=== PATIENT | male | born 1995 | race Caucasian/White ===

== ENCOUNTER 2016-11-21 09:46 | Inpatient (IN) | payer OTHER ==
[~2016-11-21] VITALS: Ht 172.7 cm; Wt 109.0 kg
[~2016-11-21 09:46] MED LIST: ARIP1TAB12 PO; ARIP400P IM; CARB200 PO; PROP1TAB66 PO; ZYPR15TA12 PO
[2016-11-21 09:59] VITALS: BP 98/56; PULSE 88; RESP 18; TEMP 98.6
[2016-11-21] MEDS ORDERED: OLANZapine ODT 10 MG TAB PO ONE (10:00)
[2016-11-21 10:25] LABS: BASOPHIL # 0.1 TH/MM3 (0-0.2); BASOPHIL % 0.9 % (0.0-2.0); EOSINOPHIL # 0.1 TH/MM3 (0-0.4); EOSINOPHIL % 1.2 % (0.0-4.0); HEMATOCRIT 45.4 % (39.0-51.0); HEMO FLAGS DIFF FINAL; LYMPH % 31.5 % (9.0-44.0); LYMPHOCYTE # 3.2 TH/MM3 (1.0-4.8); MEAN CELL VOLUME 83.7 FL (80.0-100.0); MEAN CORPUSCULAR HEMOGLOBIN 28.5 PG (27.0-34.0); MONO % 7.1 % (0.0-8.0); NEUT % 59.3 % (16.0-70.0); PLATELET COUNT 244 TH/MM3 (150-450); RED BLOOD COUNT 5.42 MIL/MM3 (4.50-5.90); RED CELL DISTRIBUTION WIDTH 13.5 % (11.6-17.2); WHITE BLOOD COUNT 10.2 TH/MM3 (4.0-11.0)
[2016-11-21 10:46] LABS: ALT (GPT) 34 U/L (9-52); ANION GAP 5 MEQ/L (5-15); AST (GOT) 24 U/L (15-39); BICARBONATE 28.6 MEQ/L (21.0-32.0); BLOOD UREA NITROGEN 8 MG/DL (7-18); CHLORIDE 105 MEQ/L (98-107); GLOMERULAR FILTRATION RATE 109 ML/MIN (>89); POTASSIUM 3.6 MEQ/L (3.5-5.1); SODIUM (NA) 139 MEQ/L (136-145)
[2016-11-21 10:48] LABS: ALKALINE PHOSPHATASE 69 U/L (45-117); TOTAL BILIRUBIN ADULT 0.9 MG/DL (0.2-1.0)
[2016-11-21] MEDS ORDERED: LORazepam 2 MG/ML VIAL ONE (11:51)
[2016-11-21] MEDS ORDERED: diphenhydrAMINE HCL 50 MG/ML VIAL ONE (11:51)
--- NOTE | 2016-11-21 11:58 | PD ---
HPI Chief Complaint: Psychiatric Symptoms Time Seen by Provider: 09:54 Travel History International Travel<30 days: No Contact w/Intl Traveler<30days: No Traveled to known affect area: No History of Present Illness HPI This is a 21-year-old male who presents to the emergency department with a history of bipolar disorder and schizoaffective disorder who presents to the emergency department having been brought in under a Cooper act for bizarre behavior. Patient is not able to provide a linear history. He expressed to police that he was having thoughts of hurting himself. He reports he's been off of his psychiatric medications for one year. PFS Past Medical History ADHD: No Bipolar Disorder: Yes (Bipolar D/O Type 1) Anxiety: No Depression: Yes Cancer: No Cardiovascular Problems: No Developmental Delay: No Diabetes: No Diminished Hearing: No Endocrine: No Gastrointestinal Disorders: No Genitourinary: No Headaches: No Hypertension: Yes Immune Disorder: No Implanted Vascular Access Dvce: No Musculoskeletal: No Neurologic: No Psychiatric: Yes Reproductive: No Respiratory: No Immunizations Current: Yes Migraines: No Seizures: No Thyroid Disease: No Ulcer: No Social History Alcohol Use: Yes (weekends) Tobacco Use: Yes (ppd) Substance Use: Yes (MARIJUANA) Allergies-Medications (Allergen,Severity, Reaction): Coded Allergies: No Known Allergies (Verified , 06/04/15) Per mother. Reported Meds & Prescriptions Reported Meds & Active Scripts Active No Active Prescriptions or Reported Medications Review of Systems Except as stated in HPI: all other systems reviewed are Neg Physical Exam Narrative GENERAL:Well appearing, no acute distress SKIN: Focused skin assessment warm and dry. HEAD: Atraumatic. Normocephalic. EYES: Pupils equal and round. No injection or drainage. ENT: Moist mucous membranes NECK: Trachea midline. CARDIOVASCULAR: Regular rate and rhythm. No murmur appreciated. RESPIRATORY: Clear to auscultation. Breath sounds equal bilaterally. GASTROINTESTINAL: Abdomen soft, non-tender, nondistended. MUSCULOSKELETAL: No obvious deformities. NEUROLOGICAL: Awake and alert. No obvious cranial nerve deficits. Moving all extremities. PSYCHIATRIC: Pacing around the room, inappropriate answers to questions, appears to be responding to internal stimuli Data Data Last Documented VS Vital Signs Date Time Temp Pulse Resp B/P Pulse Ox O2 Delivery O2 Flow Rate FiO2 11/21/16 10:12 88 18 11/21/16 09:59 98.6 98/56 Orders Complete Blood Count With Diff (11/21/16 09:57) Comprehensive Metabolic Panel (11/21/16 09:57) Drug Screen, Random Urine (11/21/16 09:57) Alcohol (Ethanol) (11/21/16 09:57) Olanzapine Odt (Zyprexa Zydis Odt) (11/21/16 10:00) Psych Screen (11/21/16 09:59) Lorazepam Inj (Ativan Inj) (11/21/16 11:51) Diphenhydramine Inj (Benadryl Inj) (11/21/16 11:51) Labs Laboratory Tests Test 11/21/16 10:06 White Blood Count 10.2 TH/MM3 Red Blood Count 5.42 MIL/MM3 Hemoglobin 15.4 GM/DL Hematocrit 45.4 % Mean Corpuscular Volume 83.7 FL Mean Corpuscular Hemoglobin 28.5 PG Mean Corpuscular Hemoglobin 34.0 % Concent Red Cell Distribution Width 13.5 % Platelet Count 244 TH/MM3 Mean Platelet Volume 9.8 FL Neutrophils (%) (Auto) 59.3 % Lymphocytes (%) (Auto) 31.5 % Monocytes (%) (Auto) 7.1 % Eosinophils (%) (Auto) 1.2 % Basophils (%) (Auto) 0.9 % Neutrophils # (Auto) 6.0 TH/MM3 Lymphocytes # (Auto) 3.2 TH/MM3 Monocytes # (Auto) 0.7 TH/MM3 Eosinophils # (Auto) 0.1 TH/MM3 Basophils # (Auto) 0.1 TH/MM3 CBC Comment DIFF FINAL Differential Comment Sodium Level 139 MEQ/L Potassium Level 3.6 MEQ/L Chloride Level 105 MEQ/L Carbon Dioxide Level 28.6 MEQ/L Anion Gap 5 MEQ/L Blood Urea Nitrogen 8 MG/DL Creatinine 0.89 MG/DL Estimat Glomerular Filtration 109 ML/MIN Rate Random Glucose 89 MG/DL Calcium Level 9.0 MG/DL Total Bilirubin 0.9 MG/DL Aspartate Amino Transf 24 U/L (AST/SGOT) Alanine Aminotransferase 34 U/L (ALT/SGPT) Alkaline Phosphatase 69 U/L Total Protein 7.5 GM/DL Albumin 3.9 GM/DL Ethyl Alcohol Level LESS THAN 3 MG/DL MDM Medical Decision Making Medical Screen Exam Complete: Yes Emergency Medical Condition: Yes Interpretation(s) Afebrile, no tachycardia, normotensive No leukocytosis Electrolytes are reassuring Alcohol level was 3 Differential Diagnosis Psychosis, bipolar disorder, schizoaffective disorder, schizophrenia Narrative Course This is a 21-year-old male who presents to the emergency department with acute psychosis. He is pacing around the room and not responding appropriately to questioning. I do think he likely will require involuntary admission. Labs were obtained which were reassuring. Patient was medically cleared for psychiatric evaluation. Diagnosis Primary Impression: Psychosis Qualified Code: F29 - Psychosis, unspecified psychosis type Scripts No Active Prescriptions or Reported Meds Mee Macias MD Nov 21, 2016 11:58
[2016-11-21] MEDS ORDERED: diphenhydrAMINE HCL 50 MG/ML VIAL IM ONE (12:00)
[2016-11-21] MEDS ORDERED: LORazepam 2 MG/ML VIAL IM ONE (12:00)
[2016-11-21 16:02] VITALS: BP 134/70; PULSE 65; RESP 18; TEMP 98.1; O2SAT 100
--- NOTE | 2016-11-21 16:58 | PD ---
History of Present Illness Chief Complaint: Psychiatric Symptoms Time Seen by Provider: 11:30 Travel History International Travel<30 Days: No Contact w/Intl Traveler<30days: No Known affected area: No Legal Status Legal Status: Cooper Act Cooper Act Signed By: Edward Paige History of Present Illness: History of Present Illness HPI This is a 21-year-old male with history of schizoaffective disorder bipolar type who presents to the emergency department under a BA. The BA alleges that has not taken medication in over one year, that he has made statements that he was going to kill people. He stated to the police that he will harm people. The patient presents to [facility] in an agitated and threatening manner. He received Zyprexa while in main ED. Patient was moved to [facility] due to concerns over his level of agitation. Upon arrival to [facility] he remains agitated. He has been pacing in hallways, punching the vázquez in his room, going up to the door of other rooms which are occupied and making verbal threats towards other patients. He has required restraints due to his potential to harm self and others. He is uncooperative with evaluation. Toxicology results are pending at this time. EMR is reviewed. his last psychiatric admission at [facility] [place]. I have called his mother Kate at [phone]. She reports that for the past week he has been aggressive and threatening, has not been sleeping as well as responding to internal stimuli. She overheard him saying " I'm going to kill those people". This morning he was punching the vázquez in the house. His siblings who are 15 years and 13 years are afraid of him. She has called the police several times in the past few days. PFSH Past Medical History ADHD: No Bipolar Disorder: Yes (Bipolar D/O Type 1) Anxiety: No Depression: Yes Cancer: No Cardiovascular Problems: No Developmental Delay: No Diabetes: No Diminished Hearing: No Endocrine: No Gastrointestinal Disorders: No Genitourinary: No Headaches: No Hypertension: Yes Immune Disorder: No Implanted Vascular Access Dvce: No Musculoskeletal: No Neurologic: No Psychiatric: Yes Reproductive: No Respiratory: No Immunizations Current: Yes Migraines: No Seizures: No Thyroid Disease: No Ulcer: No Psychiatric History Psychiatric History Hx Psychiatric Treatment: Patient has a long history of psychiatric treatment starting with [facility]. Patient has had multiple hospitalization with [facility] and [facility]. History of Inpatient Treatment: Yes Guns or firearms in home: No Social History Single male. Lives with his mother, father and 2 young siblings. Unemployed. Hx Alcohol Use: Yes (weekends) Hx Tobacco Use: Yes (ppd) Hx Substance Use: Yes (MARIJUANA) Substance Use Type: Alcohol, Marijuana Other Substances Used: UNKNOWN Hx of Substance Use Treatment: No Family Psychiatric History Unknown Allergies-Medications (Allergen,Severity, Reaction): Coded Allergies: No Known Allergies (Verified , 06/04/15) Per mother. Reported Meds & Prescriptions Reported Meds & Active Scripts Active No Active Prescriptions or Reported Medications Review of Systems ROS Limitations: Uncooperative Exam Alert: Yes [place]: Person Mood: Agitated Affect: Other (angry) Speech: Clear (Loud, threatning, illogical) Eye Contact: Staring Memory Intact: Comment (not tested.) Hallucinations: Auditory (Appears to be reacting to internal stimuli.) Delusions: No (unable to determine) Homicidal: Ideation (verbalizes his intent to hurth others. ) Insight/Judgement poor. Impaired. MDM Medical Decision Making Medical Record Reviewed: Yes Assessment/Plan 21 year old male with history of bipolar disorder schizoaffective disorder who presents under a BA for threatening and aggressive behavior and verbalized statements that he wants to hurt others. Patient has been agitated and aggressive here in [facility] and has required ETO as well as restraints At this time the patient requires inpatient treatment in order to maintain his safety as well as safety of others as well as to initiate psychiatric medication. Orders Complete Blood Count With Diff (11/21/16 09:57) Comprehensive Metabolic Panel (11/21/16 09:57) Drug Screen, Random Urine (11/21/16 09:57) Alcohol (Ethanol) (11/21/16 09:57) Olanzapine Odt (Zyprexa Zydis Odt) (11/21/16 10:00) Psych Screen (11/21/16 09:59) Lorazepam Inj (Ativan Inj) (11/21/16 11:51) Diphenhydramine Inj (Benadryl Inj) (11/21/16 11:51) Lorazepam Inj (Ativan Inj) (11/21/16 12:00) Diphenhydramine Inj (Benadryl Inj) (11/21/16 12:00) Restraints Violent (11/21/16 11:59) Diet Regular Basic (11/21/16 Dinner) Results Vital Signs Date Time Temp Pulse Resp B/P Pulse Ox O2 Delivery O2 Flow Rate FiO2 11/21/16 16:02 98.1 65 18 134/70 100 Room Air 11/21/16 10:12 88 18 11/21/16 09:59 98.6 88 18 98/56 Laboratory Tests Test 11/21/16 10:06 White Blood Count 10.2 Red Blood Count 5.42 Hemoglobin 15.4 Hematocrit 45.4 Mean Corpuscular Volume 83.7 Mean Corpuscular Hemoglobin 28.5 Mean Corpuscular Hemoglobin 34.0 Concent Red Cell Distribution Width 13.5 Platelet Count 244 Mean Platelet Volume 9.8 Neutrophils (%) (Auto) 59.3 Lymphocytes (%) (Auto) 31.5 Monocytes (%) (Auto) 7.1 Eosinophils (%) (Auto) 1.2 Basophils (%) (Auto) 0.9 Neutrophils # (Auto) 6.0 Lymphocytes # (Auto) 3.2 Monocytes # (Auto) 0.7 Eosinophils # (Auto) 0.1 Basophils # (Auto) 0.1 CBC Comment DIFF FINAL Differential Comment Sodium Level 139 Potassium Level 3.6 Chloride Level 105 Carbon Dioxide Level 28.6 Anion Gap 5 Blood Urea Nitrogen 8 Creatinine 0.89 Estimat Glomerular Filtration 109 Rate Random Glucose 89 Calcium Level 9.0 Total Bilirubin 0.9 Aspartate Amino Transf 24 (AST/SGOT) Alanine Aminotransferase 34 (ALT/SGPT) Alkaline Phosphatase 69 Total Protein 7.5 Albumin 3.9 Ethyl Alcohol Level LESS THAN 3 Diagnosis Primary Impression: Schizoaffective disorder, bipolar type Admitting Information Admitting Physician Requests: Admit Prescriptions No Active Prescriptions or Reported Meds Debra Fiore Nov 21, 2016 16:58
[2016-11-21] MEDS ORDERED: ALUMINUM/MAGNESIUM/SIMETH 30 ML CUP PO PRN (17:00)
[2016-11-21] MEDS ORDERED: MAGNESIUM HYDROXIDE SUSP 30 ML CUP PO PRN (17:00)
[2016-11-21 18:20] VITALS: BP 121/71; PULSE 70; RESP 19; TEMP 96.9; O2SAT 100
[2016-11-22 05:45] VITALS: BP 127/65; PULSE 64; RESP 18; TEMP 97.9; O2SAT 99
[2016-11-22 11:00] LABS: ANION GAP 8 MEQ/L (5-15); BICARBONATE 27.2 MEQ/L (21.0-32.0); BLOOD UREA NITROGEN 9 MG/DL (7-18); CHLORIDE 104 MEQ/L (98-107); GLOMERULAR FILTRATION RATE 99 ML/MIN (>89); POTASSIUM 3.9 MEQ/L (3.5-5.1); SODIUM (NA) 139 MEQ/L (136-145)
[2016-11-22] MEDS ORDERED: ZIPRASIDONE HCL 20 MG CAP PO SCH (11:00)
[2016-11-22 11:04] LABS: HDL CHOLESTEROL 38.9 MG/DL (40.0-60.0); LDL CHOLESTEROL 106 MG/DL (0-99)
[2016-11-22] MEDS: ZIPRASIDONE MESYLATE 20 MG VIAL IM PRN (11:20)
--- NOTE | 2016-11-22 11:52 | HHI.HP ---
Provisional Diagnosis Admission Date Nov 21, 2016 at 17:01 [place] I. Schizoaffective disorder, bipolar type, rule out substance-induced psychosis, marijuana and alcohol use disorder, [place] II. Unspecified personality disorder, rule out antisocial personality disorder [place] III. No significant medical history [place] IV. History of incarcerations, aggressive behavior, multiple psychiatric hospitalization noncompliant with medications [place] V. 40 Certification of Person's Competence To Provide Express and Informed Consent I have personally examined Sukhjinder George , a person being served at [facility] on, Nov 22, 2016 11:17. Express and informed consent means consent voluntarily given in writing, by a competent person, after sufficient explanation and disclosure of the subject matter involved to enable the person to make a knowing and willful decision without any element of force, fraud, deceit, duress, or other form of constraint or coercion. This person is 18 years of age or older, is not now known to be incompetent to consent to treatment with a guardian advocate, and does not have a health care surrogate or proxy currently making medical treatment decisions. I have found this person to be one of the following: [] Competent to provide express and informed consent, as defined above, for voluntary admission to this facility and is competent to provide express and informed consent for treatment. He/she has the consistent capacity to make well reasoned, willful, and knowing decisions concerning his or her medical or mental health treatment. The person fully and consistently understands the purpose of the admission for examination/placement and is fully capable of personally exercising all rights assured under [place] [] Incompetent to provide express and informed consent to voluntary admission, and this is incompetent to provide express and informed consent to treatment. The person must be transferred to involuntary status and a petition for a guardian advocate filed with the Circuit Court. (x) Refusing to provide express and informed consent to voluntary admission but is competent to provide express and informed consent for treatment. The person must be discharged or transferred to involuntary status. Form shall be completed within 24 hours of a person's arrival at the receiving facility and filed in the clinical record of each person: 1. Admitted on a voluntary basis 2. Permitted to provide express and informed consent to his/her own treatment 3. Allowed to transfer from involuntary to voluntary status 4. Prior to permitting a person to consent to his or her own treatment after having been previously found incompetent to consent to treatment. History of Present Illness Capacity: Has Capacity HPI This is a 21-year-old descent man, domicile with his mother, unemployed , single, supported by [facility], with psychiatric history of substance induced psychosis, schizoaffective disorder bipolar type, known by service, multiple psychiatric hospitalizations, last hospitalization was here at [facility] in 2016, documentation was reviewed, he was receiving outpatient care in [facility], and he was in [facility] mantena, 400 mg IM monthly, last dose was September 03, 2015, he has history of cannabis and alcohol use disorder, aggressive behavior, noncompliant on medications, incarcerations, over one year, who presents to the emergency department under Cooper act. The Cooper act reports that has not taken medication in that he has made statements that he was going to kill people. As per ER documentation He stated to the police that he will harm people. The patient presents to Ed in an agitated and threatening manner. He received Zyprexa while in main ED. Patient was moved to [facility] due to concerns over his level of agitation. Upon arrival to Ed he remains agitated. He has been pacing in hallways, punching the vázquez in his room, going up to the door of other rooms which are occupied and making verbal threats towards other patients. He has required restraints due to his potential to harm self and others. He is uncooperative with evaluation. On psychiatric evaluation today patient was found pacing in the snyder, but interview was made in his room. Patient is seem restless, agitated, talkative, needing constant redirection but cooperative and redirectable. Patient says that he was brought here because people want to hurt him, he says that whatever he goes people are watching and his back, some people wanted to stab me, he says that he has been trying to get to started in [facility] because I want to be a doctor, but people keep watching me and looking at me differently. Patient says that in the last days he feels like even the TV is talking about him. During the evaluation patient is talkative, disorganized, tangential, restless, making weird noises and faces. At some point he became verbally hostile, but was easily escalated. In the unit patient has been walking back and forth, at times getting in verbal arguments with staff and other peers. At this moment the patient denies suicidal and homicidal ideation, he denies visual and auditory hallucinations. He is oriented 3, with very poor attention span. Patient reports that he knows that he is not doing so well, I he is interested in restarting his medication and getting better. Patient reports occasional use of marijuana and alcohol, he denies the use of heroine, cocaine, PCP, amphetamines and other illicit drugs. Collateral information from his mother Kate at [phone] was obtained by me. She reports that for the past week he has been aggressive and threatening family members and neighbors, acting very disorganized and bizarre at home, kicking the doors, punching the vázquez, has not been sleeping as well as responding to internal stimuli, talking to himself. She says that she doesn t know what to do with him anymore, he has been most probably smoking weed and using alcohol every day she says. He is aggressive and disorganized behavior doesnt allow him to function in the society. He had order of [facility] importance, the [place], [place], and many other places due to the level of his aggressiveness. He has not been taking his medication and going to his outpatient appointments Review of Systems Constitutional: DENIES: Diaphoretic episodes, Fatigue, Fever, Weight gain, Weight loss, Chills, Dizziness, Change in appetite, Night Sweats Endocrine: DENIES: Heat/cold intolerance, Polydipsia, Polyuria, Polyphagia Eyes: DENIES: Blurred vision, Diplopia, Eye inflammation, Eye pain, Vision loss , Photosensitivity, Double Vision Ears, nose, mouth, throat: DENIES: Tinnitus, Hearing loss, Vertigo, Nasal discharge, Oral lesions, Throat pain, Hoarseness, Ear Pain, Running Nose, Epistaxis, Sinus Pain, Toothache, Odynophagia Respiratory: DENIES: Apneas, Cough, Snoring, Wheezing, Hemoptysis, Sputum production, Shortness of breath Cardiovascular: DENIES: Chest pain, Palpitations, Syncope, Dyspnea on Exertion , PND, Lower Extremity Edema, Orthopnea, Claudication Gastrointestinal: DENIES: Abdominal pain, Black stools, Bloody stools, Constipation, Diarrhea, Nausea, Vomiting, Difficulty Swallowing, Anorexia Genitourinary: DENIES: Sexual dysfunction, Urinary frequency, Urinary incontinence, Urgency, Hematuria, Dysuria, Nocturia, Penile Discharge, Testicular Pain, Testicular Swelling Musculoskeletal: DENIES: Joint pain, Muscle aches, Stiffness, Joint Swelling, Back pain, Neck pain Integumentary: DENIES: Abnormal pigmentation, Nail changes, Pruritus, Rash Hematologic/lymphatic: DENIES: Bruising, Lymphadenopathy Immunologic/allergic: DENIES: Eczema, Urticaria Neurologic: DENIES: Abnormal gait, Headache, Localized weakness, Paresthesias, Seizures, Speech Problems, Tremor, Poor Balance Psychiatric: COMPLAINS OF: Anxiety, Agitation, Delusions Past Psych History Violence risk - others (6 mos) Increased Substance Abuse History Drugs/Alcohol past 12 months Patient reports occasional use of marijuana and alcohol Past Family Social History Coded Allergies: No Known Allergies (Verified , 06/04/15) Per mother. Discontinued Scripts Aripiprazole (Abilify Maintena Pre-filled DCS)400 Mg [id number] Mg IM q28d #1 INJECTION Ref 0 *For intramuscular use only* Prov:Jose R Walker MD 06/21/15 Propranolol (Inderal)10 Mg Tab10 Mg PO TID #90 TAB Ref 0 Prov:Jose R Walker MD 06/21/15 Olanzapine (Zyprexa Zydis)15 Mg Tab30 Mg PO 2 po hs #60 TAB Ref 0 Prov:Jose R Walker MD 06/21/15 Carbamazepine (Tegretol 200 Mg Tab)200 Mg [id number] Mg PO 1 1/2 tab po bid #93 TAB Ref 0 Prov:Jose R Walker MD 06/21/15 Aripiprazole 10 Mg Tab10 Mg PO BID #60 TAB Ref 0 Prov:Jose R Walker MD 06/21/15 Current Medications Medications (Trade) Dose Ordered Sig/Minnie Route Start Time Stop Time Status Last Admin (Tylenol) 650 mg Q4H PRN PO 11/21/16 17:00 (Milk Of Magnesia Liq) 30 ml DAILY PRN PO 11/21/16 17:00 (Mag-Al Plus Susp Liq) 30 ml Q6H PRN PO 11/21/16 17:00 (Geodon) 20 mg BID PO 11/22/16 11:00 (Geodon Inj) 20 mg Q4H PRN IM 11/22/16 10:45 (Depakote Er) 250 mg BID PO 11/22/16 11:00 Family History Patient does not have any family psychiatric history Social History Patient was born and raised in [place], lives with his mother in [place], he is single, unemployed, supported by SSI, his highest level of education is a GED Patient's Strengths (min. 2) Family support Physical Exam On physical examination, patient is restless, psychomotor agitated, but no tremors, no stiffness, no withdrawal symptoms, no gait disturbance present Vital Signs Vital Signs Date Time Temp Pulse Resp B/P Pulse Ox O2 Delivery O2 Flow Rate FiO2 11/22/16 05:45 97.9 64 18 127/65 99 11/21/16 16:02 Room Air Lab Results Laboratory Tests Test 11/21/16 10:06 White Blood Count 10.2 Red Blood Count 5.42 Hemoglobin 15.4 Hematocrit 45.4 Mean Corpuscular Volume 83.7 Mean Corpuscular Hemoglobin 28.5 Mean Corpuscular Hemoglobin 34.0 Concent Red Cell Distribution Width 13.5 Platelet Count 244 Mean Platelet Volume 9.8 Neutrophils (%) (Auto) 59.3 Lymphocytes (%) (Auto) 31.5 Monocytes (%) (Auto) 7.1 Eosinophils (%) (Auto) 1.2 Basophils (%) (Auto) 0.9 Neutrophils # (Auto) 6.0 Lymphocytes # (Auto) 3.2 Monocytes # (Auto) 0.7 Eosinophils # (Auto) 0.1 Basophils # (Auto) 0.1 CBC Comment DIFF FINAL Differential Comment Sodium Level 139 Potassium Level 3.6 Chloride Level 105 Carbon Dioxide Level 28.6 Anion Gap 5 Blood Urea Nitrogen 8 Creatinine 0.89 Estimat Glomerular Filtration 109 Rate Random Glucose 89 Calcium Level 9.0 Total Bilirubin 0.9 Aspartate Amino Transf 24 (AST/SGOT) Alanine Aminotransferase 34 (ALT/SGPT) Alkaline Phosphatase 69 Total Protein 7.5 Albumin 3.9 Ethyl Alcohol Level LESS THAN 3 Mental Status Examination Appearance overweight man, age appearing, regular clothing, restless, agitated, but cooperative Speech: Pressured, Tangential Orientation: x3 Memory: Unremarkable Thought Process: Flight of Ideas, Loose Association, Tangential Thought Content: Bizarre thinking, Paranoid, Ideas of Reference Fund of Knowledge Adequate for his level of education Hallucination Type: None Attention and Concentration: Abnormal Attention Remarks Decreased attention span Suicidal Ideation: No Previous Suicide Attempts: Yes Homicidal Ideation: No Previous Homicide Attempts: No Judgment: Poor Affect: Irritable Affect if Inappropriate: Other (elevated) Mood: Angry, Irritable Motor Activity: Normal gait Assessment & Plan Problem List: (1) Schizoaffective disorder, bipolar type Assessment & Plan: On psychiatric evaluation patient is definitely manic, with pressured speech, restlessness, psychomotor agitation, decreased attention span , disorganized speech and behavior, flight of ideas, and also psychotic features such as paranoia and delusions of reference. Patient has been reportedly aggressive, agitated, hostile, and difficult to redirect verbally in the ER in the unit. His mother reports the patient has been having this presentation for about 2 weeks now with an increase in intensity and severity in the last 3 days. At this moment is not clear if the etiology of this presentation is related with substance intoxication or due to a primary major psychiatric illness decompensation a chest schizoaffective disorder bipolar type. Unfortunately toxicology was not done in patient arrival to the hospital. However, patient meets criteria for involuntary psychiatric admission due to his level of disorganization, poor contact with reality, poor ego boundaries and his potential elevated risk for danger to others and self. We will start Abilify 5 mg twice a day with the goal to bridge to Abilify Mantena in outpatient, also will start Depakote 250 mg for mood stabilization, Geodon 20 mg IM every 8 hours when necessary aggressive behavior and agitation in the unit. Extensive support, psychoeducation and motivation provided. Psychiatric consult for second opinion. sprinkler worker intervention for psychosocial assessment, collateral information, individual and group therapy, discharge plan. ICD Code: F25.0 Assessment & Plan Estimated LOS: Eleazar Fairbanks MD Nov 22, 2016 11:52
[2016-11-22] MEDS: ARIPiprazole 5 MG TAB PO SCH ×2 (11:55→21:00)
[2016-11-22] MEDS: DIVALPROEX SODIUM E.R. 250 MG TAB PO SCH ×2 (11:55→21:00)
[2016-11-22] MEDS: ACETAMINOPHEN 325 MG TAB PO PRN (17:37)
[2016-11-22 18:00] VITALS: BP 164/89; PULSE 82; RESP 18; TEMP 95.9; O2SAT 99
[2016-11-23] MEDS: ACETAMINOPHEN 325 MG TAB PO PRN ×2 (00:13→13:48)
[2016-11-23 06:05] VITALS: BP 144/70; PULSE 80; RESP 17; TEMP 97.4; O2SAT 100
[2016-11-23] MEDS: ARIPiprazole 5 MG TAB PO SCH ×2 (10:17→21:12)
[2016-11-23] MEDS: DIVALPROEX SODIUM E.R. 250 MG TAB PO SCH ×2 (10:17→21:12)
--- NOTE | 2016-11-23 13:01 | PD.CONS ---
Provisional Diagnosis Admission Date Nov 21, 2016 at 17:01 [place] I. Schizoaffective disorder, bipolar type, rule out substance-induced psychosis, marijuana and alcohol use disorder, [place] II. Unspecified personality disorder, rule out antisocial personality disorder [place] III. No significant medical history [place] IV. History of incarcerations, aggressive behavior, multiple psychiatric hospitalization noncompliant with medications [place] V. 30 History of Present Illness Service Psychiatry Consult Requested By Psychiatry Reason for Consult 2nd opinion Primary Care Physician No Primary Care Physician HPI Pt is a 21YOHM witha hx of schizoaffective disorder who was admitted to [facility] under a BA due to psychosis and threats to harm people. Chart reviewed. Staff report that he has been paranoid, having outbursts on unit and suspicious of medications. He had to be removed from recreation therapy group due to agitation and disruptive behavior. He reports that he stopped taking medications after last hospital discharge and states that he doesn't believe that he needs medications. He has been engaging in bizarre behavior such as ripping shirt off in front of nursing station and flexing muscles. Collateral information from family in EHR states that pt was highly aggressive at home and engaging in violent behavior. He has been compliant with medication on unit and denies side effects. He denies current SI/HI. Review of Systems Psychiatric: COMPLAINS OF: Agitation Past Family Social History Coded Allergies: No Known Allergies (Verified , 06/04/15) Per mother. Past Medical History Pt has a hx of multiple psychiatric admissions and non compliance with treatment. Discontinued Scripts Aripiprazole (Abilifdianne Maintena Pre-filled DCS)400 Mg [id number] Mg IM q28d #1 INJECTION Ref 0 *For intramuscular use only* Prov:Jose R Walker MD 06/21/15 Propranolol (Inderal)10 Mg Tab10 Mg PO TID #90 TAB Ref 0 Prov:Jose R Walker MD 06/21/15 Olanzapine (Zyprexa Zydis)15 Mg Tab30 Mg PO 2 po hs #60 TAB Ref 0 Prov:Jose R Walker MD 06/21/15 Carbamazepine (Tegretol 200 Mg Tab)200 Mg Ogy155 Mg PO 1 1/2 tab po bid #93 TAB Ref 0 Prov:Jose R Walker MD 06/21/15 Aripiprazole 10 Mg Tab10 Mg PO BID #60 TAB Ref 0 Prov:Jose R Walker MD 06/21/15 Current Medications Medications (Trade) Dose Ordered Sig/Minnie Route Start Time Stop Time Status Last Admin (Tylenol) 650 mg Q4H PRN PO 11/21/16 17:00 11/23/16 00:13 (Milk Of Magnesia Liq) 30 ml DAILY PRN PO 11/21/16 17:00 (Mag-Al Plus Susp Liq) 30 ml Q6H PRN PO 11/21/16 17:00 (Geodon Inj) 20 mg Q4H PRN IM 11/22/16 10:45 11/22/16 11:20 (Depakote Er) 250 mg BID PO 11/22/16 11:00 11/23/16 10:17 (Abilify) 5 mg BID PO 11/22/16 11:30 11/23/16 10:17 Family History pt unable to provide Social History Lives with family, multiple arrests and long term time. unemployed Patient's Strengths (min. 2) verbal, Family support Physical Exam no acute distress. Vital Signs Vital Signs Date Time Temp Pulse Resp B/P Pulse Ox O2 Delivery O2 Flow Rate FiO2 11/23/16 06:05 97.4 80 17 144/70 100 11/21/16 16:02 Room Air Mental Status Examination Speech: Pressured, Tangential Orientation: x3 Memory: Unremarkable Thought Process: Flight of Ideas, Loose Association Thought Content: Bizarre thinking, Paranoid, Ideas of Reference Hallucination Type: None Attention and Concentration: Easily Distracted, Abnormal Suicidal Ideation: No Previous Suicide Attempts: Yes Homicidal Ideation: No Previous Homicide Attempts: No Insight: Poor Judgment: Poor Affect: Other (expansive) Affect if Inappropriate: Labile Mood: Irritable Motor Activity: Normal gait Assessment & Plan Problem List: (1) Schizoaffective disorder, bipolar type ICD Code: F25.0 Assessment & Plan I agree that pt meets criteria for involuntary hospitalization due to psychosis and aggression. 2nd opinion paperwork completed. Continue current tx plan. Estimated LOS: Cheryle Welch MD Nov 23, 2016 13:01 Mental Status Examination Speech: Pressured, Tangential Orientation: x3 Memory: Unremarkable Thought Process: Flight of Ideas, Loose Association, Tangential Thought Content: Bizarre thinking, Paranoid, Ideas of Reference Hallucination Type: None Attention and Concentration: Abnormal Suicidal Ideation: No Previous Suicide Attempts: Yes Homicidal Ideation: No Previous Homicide Attempts: No Judgment: Poor Affect: Irritable Affect if Inappropriate: Other (elevated) Mood: Angry, Irritable Motor Activity: Normal gait Assessment & Plan Problem List: (1) Schizoaffective disorder, bipolar type ICD Code: F25.0 Assessment & Plan Estimated LOS: days Cheryle Villa MD Nov 23, 2016 13:01
[2016-11-23 13:26] LABS: HEMOGLOBIN A1b 1.4 %; HEMOGLOBIN Ao 87.1 %; HEMOGLOBIN LA1C 1.8 %; HEMOGLOBIN P3 3.2 %
[2016-11-23] MEDS: NICOTINE 7 MG/24 HR PATCH T-DERMAL SCH (16:01)
[2016-11-23] MEDS: REMOVE OLD PATCH T-DERMAL SCH (21:00)
[2016-11-23 21:28] VITALS: BP 166/86; PULSE 76; RESP 17; TEMP 97.5; O2SAT 99
[2016-11-24] MEDS: ZIPRASIDONE MESYLATE 20 MG VIAL IM PRN ×3 (05:31→20:31)
[2016-11-24 06:00] VITALS: BP 132/79; PULSE 125; RESP 18; TEMP 97.9; O2SAT 100
[2016-11-24] MEDS: ACETAMINOPHEN 325 MG TAB PO PRN ×2 (08:12→12:42)
[2016-11-24] MEDS: DIVALPROEX SODIUM E.R. 250 MG TAB PO SCH ×2 (08:13→20:28)
[2016-11-24] MEDS: ARIPiprazole 5 MG TAB PO SCH (08:13)
[2016-11-24] MEDS: NICOTINE 7 MG/24 HR PATCH T-DERMAL SCH (09:00)
[2016-11-24] MEDS: REMOVE OLD PATCH T-DERMAL SCH ×2 (09:00→21:00)
--- NOTE | 2016-11-24 17:14 | HHI.PYPN ---
Subjective Remarks Patient seen in [place] with nurse and the law, patient calm with me though is quite significantly paranoid and vigilant always glancing over-shoulder standing in the corners. He denies voices that appears to be responding to internal stimuli, states he does need to take medication because he has no illness. Is vague about any substance use though he says he has been sober. Patient has received multiple ETO's with a past 24 hours. Will increase schedule Abilify to 10 mg twice a day Review of Systems Except as stated in HPI: all other systems reviewed are Neg Objective Alert: Yes Holt: Person Mood: Agitated Affect: Other (angry) Memory Intact: Comment (not tested.) Hallucinations: Auditory (Appears to be reacting to internal stimuli.) Delusions: Yes (unable to determine) Delusion Type: Paranoid Suicidal: Ideation (denies) Homicidal: Ideation (verbalizes his intent to hurth others. ) Insight/Judgment Very poor Vitals/IOs Vital Signs Date Time Temp Pulse Resp B/P Pulse Ox O2 Delivery O2 Flow Rate FiO2 11/24/16 06:00 97.9 125 18 132/79 100 11/21/16 16:02 Room Air Assessment & Plan Problem List: (1) Schizoaffective disorder, bipolar type ICD Code: F25.0 Assessment & Plan Estimated LOS: days patient continues quite psychotic and paranoid, he is vigilant. Though compliant medication at this time Justification for Cont. Inpt. At this time patient will decompensate if placed on the lower level of care Discharge Planning To be determined Jose R Walker MD Nov 24, 2016 17:13
[2016-11-24 18:39] VITALS: BP 151/83; PULSE 83; RESP 17; TEMP 96.8; O2SAT 99
[2016-11-24] MEDS: ARIPiprazole 10 MG TAB PO SCH (20:28)
[2016-11-25] MEDS: ZIPRASIDONE MESYLATE 20 MG VIAL IM PRN (04:10)
[2016-11-25 06:02] VITALS: BP 139/88; PULSE 94; RESP 18; TEMP 97; O2SAT 99
[2016-11-25] MEDS: ARIPiprazole 10 MG TAB PO SCH (08:44)
[2016-11-25] MEDS: NICOTINE 7 MG/24 HR PATCH T-DERMAL SCH (08:44)
[2016-11-25] MEDS: DIVALPROEX SODIUM E.R. 250 MG TAB PO SCH (08:44)
[2016-11-25] MEDS: REMOVE OLD PATCH T-DERMAL SCH (08:45)
[2016-11-25] MEDS ORDERED: ARIP1TAB12 PO (11:10)
[2016-11-25] MEDS ORDERED: DIVA250ER PO (11:10)
--- NOTE | 2016-11-25 11:13 | HHI.DS ---
Psychiatry Discharge Summary Inpatient Psychiatric care?: Yes Advance Directive: No Reason Not Provided: AGITATED Mental Health AdvanceDirective: No Health Care Proxy: No Admission Admission Date Nov 21, 2016 at 17:01 Admission Diagnosis: (1) Schizoaffective disorder, bipolar type ICD Code: F25.0 Brief History Pt is a 21YOHM witha hx of schizoaffective disorder who was admitted to [facility] under a BA due to psychosis and threats to harm people. Chart reviewed. Staff report that he has been paranoid, having outbursts on unit and suspicious of medications. He had to be removed from recreation therapy group due to agitation and disruptive behavior. He reports that he stopped taking medications after last hospital discharge and states that he doesn't believe that he needs medications. He has been engaging in bizarre behavior such as ripping shirt off in front of nursing station and flexing muscles. Collateral information from family in EHR states that pt was highly aggressive at home and engaging in violent behavior. He has been compliant with medication on unit and denies side effects. He denies current SI/HI. Tobacco Use In Past 30 Days: 4 or Less Cigarettes/Day Alcohol Use: Never Hospital Course Patient show compliance with the medication today is calm cooperative acknowledged his need for medication willingness taking medication the community. Is also willing to follow up with outpatient mental health services. Denies suicidality homicidality voices or visions states his talked with mother and she is willing to have [facility] home. Thus patient be discharged today to himself Rx times a month follow-up [facility] Results Blood Pressure 139 / 88 Vital Signs Date Time Temp Pulse Resp B/P Pulse Ox O2 Delivery O2 Flow Rate FiO2 11/25/16 06:02 97.0 94 18 139/88 99 11/21/16 16:02 Room Air Laboratory Results Test 11/22/16 08:37 Hemoglobin A1c 5.1 % (4.3-6.0) Triglycerides Level 119 MG/DL (42-150) Cholesterol Level 169 MG/DL (120-200) LDL Cholesterol 106 MG/DL (0-99) HDL Cholesterol 38.9 MG/DL (40.0-60.0) Summary of Procedures None done Pending results at discharge: No Medications # of Antipsychotic meds at D/C: 1 Approp Antipsych med options 1 - Minimum of three failed multiple trials of monotherapy. 2 - Documented plan to taper to monotherapy due to previous use of multiple meds OR cross-taper in progress at D/C. 3 - Documentation of augmentation of Clozapine. 4 - Justification other than those listed in allowable values 1-3, document here : Discharge Discharge Date: Nov 25, 2016 Discharge Diagnosis: (1) Schizoaffective disorder, bipolar type Diagnosis: Principal ICD Code: F25.0 Mental Status Exam at Disch Alert oriented stockily built male, calm cooperative, he is normal active, his mood is euthymic to somewhat restricted with decreased range of motion intensity of his affect. Speech rate and rhythm within normal limits though no formal thought disorders. No auditory or visual hallucinations no delusions noted consider injections poor cognition grossly intact Pt Condition on Discharge: Stable Discharge Disposition: Discharge Home Discharge Instructions Diet Instructions: As Tolerated, No Restrictions Activities you can perform: Regular-No Restrictions Scheduled Appointment: Chapito Salas Discharge Time > 30 minutes Discharge/Advance Care Plan Health Problems: (1) Schizoaffective disorder, bipolar type Goals to promote your health * To prevent worsening of your condition and complications * To maintain your health at the optimal level Directions to meet your goals Take your medications as prescribed Follow your dietary instruction Follow activity as directed Keep your appointments as scheduled Take your immunizations and boosters as scheduled If your symptoms worsen call your PCP, if no PCP go to Urgent Care Center or Emergency Room For 22/12 questions related to your inpatient stay or results of tests pending at discharge, please contact Dr. Jose R Walker at Smoking is Dangerous to Your Health. Avoid second hand smoking Jose R Walker MD Nov 25, 2016 11:13
[2016-11-25] MEDS: ACETAMINOPHEN 325 MG TAB PO PRN (12:19)
== END 2016-11-25 16:15 | disposition home or self-care (01) | DRG 885 ==
LOC: NEPD 09:46 → NEDA 17:01 → H270 18:08
PROVIDERS: ADMIT Psychiatry & Neurology Psychiatry; ATTEND Psychiatry & Neurology Psychiatry
DX: F25.0 Schizoaffective disorder, bipolar type (principal); Z78.1 Physical restraint status; I10 Essential (primary) hypertension; F12.90 Cannabis use, unspecified, uncomplicated; F60.9 Personality disorder, unspecified; F22 Delusional disorders; Z91.14 Patient's other noncompliance with medication regimen; Z91.19 Patient's noncompliance with other medical treatment and regimen; F17.210 Nicotine dependence, cigarettes, uncomplicated
CPT/HCPCS: 80048; 80053; 80061; 80307; 83036; 85025; 96372; J1200; J2060; J3486